=== PATIENT | male | born 1970 | race Two or more races ===

== ENCOUNTER 2017-08-11 20:18 | Emergency (ER) | payer MEDICARE, MEDICAID ==
[~2017-08-11] VITALS: Ht 180.3 cm; Wt 83.9 kg
[2017-08-11] MEDS ORDERED: LACT10SO PO (20:48)
[2017-08-11] MEDS ORDERED: SPIR100T3 PO (20:48)
[2017-08-11] MEDS ORDERED: FURO-151 PO (20:48)
--- NOTE | 2017-08-11 20:55 | NUR ---
Patient brought in by firefighters to the ER ambulating with steady gait, reports right flank pain that radiates to the right leg, reports has history of liver cirrhosis.
--- NOTE | 2017-08-11 21:00 | NUR ---
Dr. Carlson at bedside for MSE.
--- NOTE | 2017-08-11 21:10 | NUR ---
Patient out of ER for CT.
[2017-08-11 21:11] LABS: BASOPHILS % (AUTO) 0.9 % (0.0-2.0); EOSINOPHILS # (AUTO) 0.3 K/uL (0.0-0.7); EOSINOPHILS % (AUTO) 8.6 % (0.0-7.0); HEMATOCRIT 33.6 % (36.7-47.1); HEMOGLOBIN 11.4 g/dL (12.5-16.3); LYMPHOCYTES # (AUTO) 0.5 K/uL (20.0-40.0); LYMPHOCYTES % (AUTO) 14.6 % (20.5-51.5); MEAN CORPUSCULAR HEMOGLOBIN 30.1 uug (23.8-33.4); MEAN CORPUSCULAR HGB CONC 34 g/dL (32.5-36.3); MEAN CORPUSCULAR VOLUME 89.2 fL (73.0-96.2); MONOCYTES # (AUTO) 0.3 K/uL (2.0-10.0); MONOCYTES % (AUTO) 8.7 % (0.0-11.0); NEUTROPHILS # (AUTO) 2.3 K/uL (1.8-8.9); NEUTROPHILS % (AUTO) 67.2 % (38.5-71.5); PLATELET COUNT (AUTO) 68 K/uL (152-348); RED BLOOD CELL COUNT(AUTO) 3.77 MIL/uL (4.06-5.63); WHITE BLOOD COUNT (AUTO) 3.4 K/uL (3.6-10.2)
[2017-08-11 21:14] LABS: *BILIRUBIN,URIN NEGATIVE (NEGATIVE); *BLOOD, URINE 1+ (NEGATIVE); *CLARITY,URINE CLEAR (CLEAR); *COLOR,URINE YELLOW (YELLOW); *KETONES,URINE NEGATIVE (NEGATIVE); *PROTEIN,URINE NEGATIVE (NEGATIVE); *UROBILINOGEN,URINE 0.2 E.U./dl (NORMAL); LEUKOCYTE ESTERASE ,URINE NEGATIVE (NEGATIVE); NITRITE, URINE NEGATIVE (NEGATIVE); UGLUCOSE NEGATIVE (NEGATIVE)
[2017-08-11 21:18] LABS: BACTERIA,URINE NONE SEEN /HPF (NONE SEEN); SQUAMOUS EPITHELIAL CELL,UR NONE SEEN /HPF (NONE SEEN); WBC,URINE 0-3 /HPF (0-3)
--- NOTE | 2017-08-11 21:25 | NUR ---
Patient back to ER from CT.
[2017-08-11 21:26] LABS: LYMPHOCYTES % (MANUAL) 14 % (20-40); MONOCYTES % (MANUAL) 8 % (2-10); NEUTROPHILS % (MANUAL) 66 % (42-75)
[2017-08-11 21:27] LABS: BILIRUBIN,DIRECT 1.4 mg/dL (0.0-0.2); BILIRUBIN,TOTAL 2.7 mg/dL (0.2-1.0); CREATININE 0.9 mg/dL (0.6-1.3); EOSINOPHILS % (MANUAL) 12 % (0-8); POTASSIUM 3.4 mmol/L (3.5-5.1); TOTAL PROTEIN, SERUM 6.8 g/dL (6.4-8.2)
[2017-08-11] MEDS ORDERED: FENTANYL CITRATE 100 MCG/2 ML AMPUL IV ONE (22:15)
[2017-08-11] MEDS ORDERED: FENTANYL CITRATE 100 MCG/2 ML AMPUL ONE (22:32)
--- NOTE | 2017-08-11 23:06 | NUR ---
Patient reports pain medication made the pain feel a little better for a short time, but it still hurts a lot. MD notified.
--- NOTE | 2017-08-11 23:15 | NUR ---
Dr. Carlson on panel call with Dr. Felipe Oakley.
--- NOTE | 2017-08-12 00:10 | NUR ---
Patient discharged to home in stable conditon. Written and verbal after care instructions given. Patient verbalizes understanding of instructions. 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
[2017-08-12 00:13] VITALS: BP 117/71
== END 2017-08-12 00:10 | disposition home or self-care (01) ==
LOC: ER 20:20
DX: R10.11 Right upper quadrant pain (principal); K74.60 Unspecified cirrhosis of liver; Z88.0 Allergy status to penicillin; Z79.899 Other long term (current) drug therapy
CPT/HCPCS: 36415; 70030-TC; 71045; 83605; 83690; 85025; 85730; 87040; 87086; 93005; A4663; J3010